=== PATIENT | female | born 1945 | race Caucasian/White ===

== ENCOUNTER → 2022-11-09 | Outpatient (CLI) | payer MEDICARE, OTHER, SELFPAY ==
--- NOTE | 2022-11-09 12:59 | US_ITS ---
STUDY: THYROID ULTRASOUND REASON FOR EXAM: Female, 77 years old. .Post THYROIDECTOMY 2012 -- ABD LABS TECHNIQUE: Ultrasound evaluation of the thyroid was performed with real-time and static lopes-scale imaging. COMPARISON: Head and neck soft tissue May 15, 2017 FINDINGS: RIGHT LOBE: Surgically absent. LEFT LOBE: Surgically absent. ISTHMUS: Surgically absent. There is a right Neck Soft Tissue lymph node measuring 1.0 x 1.2 x 0.4 cm. There is a left-sided Neck Soft Tissue measuring 4 x 4 by 2 mm. This has a benign appearance. US/Head/Neck Soft Tissue IMPRESSION: Status post thyroidectomy. Benign appearing small bilateral Neck Soft Tissue lymph nodes. Electronically Signed: Concepcion Guzmán MD at 14:03 EDT ,
== END | disposition home or self-care (01) ==
LOC: US 12:58
PROVIDERS: PCP Family Medicine; Referring Provider Internal Medicine Endocrinology, Diabetes & Metabolism; Visit Provider Internal Medicine Endocrinology, Diabetes & Metabolism
DX: C73 Malignant neoplasm of thyroid gland (principal); E89.0 Postprocedural hypothyroidism
CPT/HCPCS: 76536

== ENCOUNTER → 2025-03-12 | Outpatient (CLI) | payer MEDICARE, OTHER, SELFPAY ==
--- NOTE | 2025-03-12 14:24 | US_ITS ---
PROCEDURE: HEAD/NECK SOFT TISSUE 03/12/2025 REASON FOR EXAM: THYROID CA (DX CODE C73) TECHNIQUE: HEAD/NECK SOFT TISSUE COMPARISON: Prior study dated November 09, 2022. FINDINGS: The patient is status post total thyroidectomy. Several small benign-appearing lymph nodes are seen. No significant abnormality is seen. US/Head/Neck Soft Tissue IMPRESSION: No significant abnormality is seen. Reading Location: [id number]
== END | disposition home or self-care (01) ==
PROVIDERS: PCP Family Medicine; Referring Provider Internal Medicine Endocrinology, Diabetes & Metabolism; Visit Provider Internal Medicine Endocrinology, Diabetes & Metabolism
DX: C73 Malignant neoplasm of thyroid gland (principal); E89.0 Postprocedural hypothyroidism
CPT/HCPCS: 36415; 76536; 84432; 84439; 84443; 86800